=== PATIENT | female | born 1995 | race Caucasian/White ===

== ENCOUNTER 2017-05-19 05:14 | Day surgery (SDC) | payer SELFPAY ==
[2017-05-19 05:42] VITALS: BP 106/65; PULSE 71; RESP 14; TEMP 37.3; O2SAT 100; BMI 18.8
[2017-05-19 05:54] LABS: Internal QC Validated? YES +Cl - CLEAR BKGD; Pregnancy, Urine Negative Negative
--- NOTE | 2017-05-19 07:15 | EMB_PTH ---
PATIENT: DOTTIE NETTLES LOC: [facility] [place] U#:[id number] AGE/SX: 22/F ROOM: RE05/19/[address]: Dr. Jennifer Vidal MD : [id number] BED: DIS: 05/19/2017 SPEC #: [id number] RECD: 05/19/17 08:23 STATUS: RACHAEL GEETHA #: [id number] TERRENCE: 05/19/17 07:[address]: Jennifer Kwan DEPT: SURGICAL PATHOLOGY RECD BY: Krysta Jerome ENTERED: 05/19/17 11:38 SP TYPE: ENDOM BX/C DAYANARA DR: No Primary Care Phys Tissues: A - Endometrium, NOS B - POLYP Procedures: Surgery Specimen Level IV HEADER OPERATION: Hysteroscopy, dilation and curettage, polypectomy PRE-OP DIAGNOSIS: Polyp of cervix uteri TISSUE SUBMITTED: A. Endometrial curettings, B. Endometrial polyp MICROSCOPIC DIAGNOSIS A. Endometrial curettings: Secretory endometrium. B. Endometrial polyp, polypectomy: Fragments of inflamed benign endometrial polyp with secretory endometrium. GEORGINA:deandre 05/20/17 MICROSCOPIC DESCRIPTION Slides are reviewed. GROSS DESCRIPTION A - Received in fixative is one container labeled with the patient's name and designated endometrial curettings. The specimen consists of multiple irregular fragments of pink-red soft tissue that in aggregate measure 3 x 2.5 x 0.3 cm. The entire specimen is submitted in one cassette. B - Received in fixative is one container labeled with the patient's name and designated endometrial polyp. The specimen consists of two pieces of pink, congested polyp measuring 1 x 0.7 x 0.7 cm and 2.5 x 1.5 x 0.7 cm. Both pieces are longitudinally bisected. The entire specimen is submitted in two cassettes with each cassette containing one bisected polyp. / GEORGINA:deandre 05/19/17 TC:5 CPT: 01626 x2
[2017-05-19 08:00] VITALS: BP 104/83; BP 106/65; PULSE 80; RESP 16; TEMP 36.2; O2SAT 100
[2017-05-19 08:05] VITALS: BP 106/65; BP 109/70; PULSE 75; RESP 16; O2SAT 99
--- NOTE | 2017-05-19 08:05 | PCM.DC.D&C ---
Discharge Diet: No Restrictions Discharge Activity: Return to Normal Activity, May Shower May resume sexual activity in: 4 weeks Call your doctor if your incision/area has: Sudden Increased Bleeding, Increased Pain/ Swelling Call your doctor if you observe: Fever of 101 or Higher, Inability to urinate, Inability to have a bowel movement, Using more than one pad per hour, Shortness of breath, Chest pain, Calf discomfort, Uncontrolled pain Instructions: Hysteroscopy Allergies/Adverse Reactions: Allergies No Known Allergies Allergy (Verified 05/12/17 11:53) Medications to take at Discharge Ibuprofen 800 mg PO TID PRN #30 tab 05/19/17 The following prescriptions were given: Ibuprofen 800 mg PO TID PRN #30 tab PRN Reason: Pain Primary Care Physician: Care Physician,No Primary [Primary Care Provider] - Please Follow Up With: Jennifer Alvarez MD When: 2-4 weeks
--- NOTE | 2017-05-19 08:07 | PCM.OPRPT ---
Problem List (1) Abnormal uterine bleeding (AUB) Status: Acute (2) Cervical polyp Status: Acute Report of Operation Date of Procedure: 05/19/17 Pre-Operative Diagnosis: Cervical versus endometrial polyp, abnormal uterine bleeding Post-Operative Diagnosis: : Cervical polyp, abnormal uterine bleeding Surgery/Procedure Performed:: Hysteroscopy, dilation and curettage, cervical polypectomy Description of Surgical Findings:: Prolapsing cervical polyp Uterus with normal shape and bilateral tubal ostia normal Type of Anesthesia:: Local MAC Anesthesiologist: Erick Xavier Specimen's removed: 1. Endometrial curettings 2. Cervical polyp Estimated Blood Loss (mL): 5 Description of Procedure: Indications: Ms. Hugo is a 22-year-old nulligravida presents with excessive and frequent menstruation with irregular cycle reporting postcoital bleeding. She was found to have a polyp prolapsing through the cervix however was unclear if it was cervical or endometrial in origin. Following counseling she opted to proceed with hysteroscopy, D&C, polypectomy. Risks, benefits, indications and alternatives of procedure were reviewed at length. The patient desired to proceed. Procedure: The patient was taken to the operating room and signed and was performed. She is placed in the dorsal supine position and induced under MAC. She is then placed into dorsal lithotomy and examination under anesthesia was performed. The perineum and vagina were prepped and draped in sterile fashion. Straight catheterization of the bladder was performed. A bivalve speculum was placed into the vagina and the cervix visualized and grasped at the anterior cervical lip using a single-tooth tenaculum. A total of 20 cc of 1% lidocaine was placed for paracervical block. A left polyp approximately 3 cm was visualized however it base was unable to be seen. Hysteroscopy was performed him in treating normal uterine cavity and ostia bilaterally. The polyp appear to be of endometrial origin. The Endo Stitch was applied to lasso the polyp with polypectomy performed. The polyp was sent to pathology. Curettage was subsequently performed and followed by hysteroscopy confirming continued integrity of the uterine cavity. The procedure was complete. The tenaculum was removed from the cervix and speculum were removed from the vagina. Sponge counts were correct ?2. The patient was placed into dorsal supine position, awakened, and transferred to the recovery room without complication. - Complications None - Admit VTE Documentation VTE Present on Admission: No VTE Mechan Device Prophylaxis: SCD's VTE Pharm Prophylaxis ordered?: No
[2017-05-19 08:10] VITALS: BP 100/70; BP 106/65; PULSE 72; RESP 16; O2SAT 100
[2017-05-19 08:15] VITALS: BP 106/65; BP 109/70; PULSE 65; RESP 14; TEMP 36.2; O2SAT 100
[2017-05-19 09:59] VITALS: BP 106/65
== END 2017-05-19 10:00 | disposition home or self-care (01) ==
LOC: SDC 05:15 → AC 05:18
PROVIDERS: Visit Provider Obstetrics & Gynecology
PROC: 0UDB8ZZ Extraction of Endometrium, Via Natural or Artificial Opening Endoscopic (ICD-10-PCS; CPT 58558; principal; 2017-05-19 07:05)
DX: N85.8 Other specified noninflammatory disorders of uterus (principal); N84.1 Polyp of cervix uteri; N93.9 Abnormal uterine and vaginal bleeding, unspecified
CPT/HCPCS: 58558; 36415; 81025; 86850; 86900; 88305; J7120

== ENCOUNTER → 2017-09-20 14:45 | Outpatient (CLI) | payer OTHER, SELFPAY ==
[2017-09-21 13:01] LABS: Chlamydia Trachomatis by PCR Negative (Negative); Neisserai gonorrhoeae by PCR Negative (Negative); Probe Check PASS; Sample Adequacy Control PASS; Specimen Processing Control PASS
== END ==
PROVIDERS: Visit Provider Obstetrics & Gynecology
DX: Z12.4 Encounter for screening for malignant neoplasm of cervix (principal); Z11.3 Encounter for screening for infections with a predominantly sexual mode of transmission
CPT/HCPCS: 87491; 87591; 88175; G0145

== ENCOUNTER → 2018-03-28 10:00 | Outpatient (CLI) | payer SELFPAY ==
--- OUTSIDE RECORDS SUMMARY | 2018-06-30 10:30 | XMS RPT_ITS ---
:1995 Author Organization [place] Care Team Providers Name Role Phone JOSEPH REYES Referring Unavailable FUAD CAMARILLO DO Admitting Unavailable FUAD CAMARILLO DO Attending Unavailable FUAD CAMARILLO DO Primary Care Unavailable JOSEPH REYES Consulting Unavailable PROVIDER, UNKNOWN Consulting Unavailable PROVIDER, UNKNOWN Consulting Unavailable PROVIDER, UNKNOWN Consulting Unavailable DARCIE DURÁN Admitting Unavailable DARCIE DURÁN Attending Unavailable DARCIE DURÁN Primary Care Unavailable JOSEPH REYES Consulting Unavailable PROVIDER, UNKNOWN Consulting Unavailable PROVIDER, UNKNOWN Consulting Unavailable PROVIDER, UNKNOWN Consulting Unavailable DARCIE DURÁN Admitting Unavailable DARCIE DURÁN Attending Unavailable DARCIE DURÁN Primary Care Unavailable JOSEPH REYES Consulting Unavailable PROVIDER, UNKNOWN Consulting Unavailable PROVIDER, UNKNOWN Consulting Unavailable PROVIDER, UNKNOWN Consulting Unavailable Darcie Durán Attending Unavailable Primay Care Physicia, No Primary Care Unavailable Jennifer Alvarez Attending Unavailable Jennifer Alvarez Referring Unavailable Primay Care Physicia, No Primary Care Unavailable Darcie Durán Attending Unavailable Darcie Durán Referring Unavailable Darcie Durán Admitting Unavailable Darcie Durán Attending Unavailable Primay Care Physicia, No Primary Care Unavailable Darcie Durán Referring Unavailable PROBLEMS PROBLEMS DATE TYPE CONDITION / CODE ATTENDING STATUS SOURCE 03/29/2018 Unknown Z36.85 - Encounter Darcie Durán Active [facility] for [facility] screening for [facility] Streptococcus B / Repository Z36.85(ICD-10) 11/01/2017 Unknown Z12.4 - Encounter Darcie Durán Active [facility] for screening for Community malignant neoplasm Hospital of cervix / Repository Z12.4(ICD-10) PROCEDURES PROCEDURES No Procedure Records FoundRESULTS RESULTS DISCHARGE INSTRUCTION Observed: 05/03/2018 Status: F Source: ELLEN 11:43 AM [facility] REPOSITORY [facility] Medical Records Department [address] [place] [address] Instructions for Home/Discharge Instructions 05/03/18 1142 MR#: [id number] Acct: [id number] Name: DOTTIE NETTLES Rep #: [id number] : 1995 23 From: Darcie Durán MD PCP: Care Physician, No Primary Status: ADM IN Discharge Diet: No Restrictions Discharge Activity: May Shower, May Take a Tub Bath May resume sexual activity in: 4-6 weeks Additional Activity Instructions:: Nothing in the vagina for 4-6 weeks. You may return to work/school in 6 weeks. Call your doctor if you observe: Fever of 101 or Higher, Inability to urinate, Inability to have a bowel movement, Using more than one pad per hour Additional Instructions: If you experience any of the following, contact your healthcare provider. * Bleeding that soaks a pad every hour for 2 hours * Fever 100.4 or higher * Unrelieved incision or abdominal pain * Swelling, redness, discharge or bleeding from your incision or episiotomy site * Your incision begins to separate * Problems urinating (including inability to urinate or burning while urinating). * Visual changes * Severe headache * Flu-like symptoms * Pain or redness in one of both of your breasts * Pain, warmth, tenderness or swelling in your legs, especially the calf area * Frequent nausea and vomiting * Symptoms of depression or anxiety If you experience any of the following, call 911 or go to the nearest Emergency Room. * Chest pain * Problems breathing * Seizure activity * Partial or complete paralysis of a body part, slurred speech, weakness or drooping of the face, or a sudden inability to walk or hold your balance Allergies/Adverse Reactions: Allergies No Known Allergies Allergy (Verified 05/03/18 03:33) Medications to take at Discharge Tablet 1 tab PO DAILY 05/03/18 Please Follow Up With: Darcie Durán MD - [phone] When: Call to make an appointment with your doctor in 6 weeks. Primary Care Physician: Care Physician,No Primary [Primary Care Provider] - Test Results: Test results from this visit will be discussed in further detail at your follow-up appointment, if applicable. 05/03/18 1143 <Electronically signed by Darcie Durán MD> Date Darcie Durán MD CC: No Primary Care Physician Signed OPERATIVE REPORT Observed: 05/03/2018 Status: F Source: ALLRED 11:42 AM [facility] Medical Records Department [address] [place] [address] Operative Report 05/03/18 1139 MR#: [id number] Acct: [id number] Name: DOTTIE NETTLES Rep #: [id number] : 1995 23 From: Darcie Durán MD PCP: Care Physician, No Primary Status: ADM IN Location: [place] [address] Vaginal Delivery Maternal Presentation: Active Labor Amniotic Membrane Rupture Type: Artificial Amniotic Fluid Description: Clear Final BLANCA: 04/27/18 Final LBANCA Source: US <20 weeks Gestational age: 40 Weeks and 6 Days Date of Procedure: 05/03/18 Pre-Operative Diagnosis: IUP Post-Operative Diagnosis: IUP Surgery/ Procedure Performed: Spontaneous Vaginal Delivery Type of Anesthesia: Local with 1% lidocaine Description of Procedure: Spontaneous vaginal delivery of a viable female infant with Apgars of 9/9 from an occiput anterior presentation with clear amniotic fluid and normal three-vessel placenta. Second-degree midline episiotomy extended to third degree midline laceration repaired in layers with 3-0 Vicryl suture under local. Sponges okay. Delivery physician: Darcie Durán MD. Presentation: Vertex Placental Delivery Description: Spontaneous Placenta Disposition: [facility] Cord Vessel Description: 3 Vessels Cord Entanglement: None Drain: Doran to straight drain Estimated Blood Loss: 250 cc A gender: Female (1 minute): 9 (5 minute): 9 Episiotomy Description: Midline, 2nd degree Laceration: Midline, 3rd degree Medications given after delivery: IV Pitocin Complications: None 05/03/18 1142 <Electronically signed by Darcie Durán MD> Date Darcie Durán MD CC: No Primary Care Physician; Darcie Durán MD Signed CBC-COMPLETE BLOOD CNT Collected: 05/03/2018 Status: F Source: ELLEN NO DIFF 3:15 AM [facility] REPOSITORY TYPE CODE TESTS RESULT OUT OF RANGE REFERENCE UNITS LAB L100.1000 4.4-11.0 K/mm3 Normal WBC 10.7 LAB L100.1200 4.2-5.4 M/mm3 Normal RBC 4.43 LAB L100.1300 12.0-15.0 g/dl Normal HGB 13.7 LAB L100.1400 37-47 % Normal HCT 40.2 LAB L100.1500 81-99 fL Normal MCV 90.7 LAB L100.1600 27.0-32.0 pg Normal MCH 30.9 LAB L100.1700 32-36 g/gl Normal MCHC 34.1 LAB L100.1810 11.6-14.6 % Normal RDW CV 13.0 LAB L100.1820 35.1-43.9 fl Normal RDW SD 42.4 LAB L100.1900 150-450 K/mm3 Normal PLT 150 LAB L100.2000 6.2-12.0 fl Normal MPV 10.1 Performed By: #### L100.0500 #### [facility] [address] [place], [place], [address] TYPE AND SCREEN Collected: 05/03/2018 Status: F Source: ELLEN 3:15 AM [facility] REPOSITORY Order Comment: Reason for Type AND Screen/Red Cells: TYPE CODE TESTS RESULT OUT OF RANGE REFERENCE UNITS LAB B10.0800 O Normal BLOOD TYPE GEL POSITIVE LAB B100.4000 Normal Antibody NEGATIVE Screen Performed By: #### B101.7450 #### [facility] [address] [place], [address] Observed: 03/29/2018 Status: F Source: ELLEN CULTURE, GROUP B 10:00 AM [facility] REPOSITORY Comments: VAGINAL/RECTAL WYATT Culture Group B Beta Streptococcus is not isolated. Performed By: #### M100.1800 #### [facility] [address] [place], [address] CBC Collected: 02/07/2018 Status: F Source: [place] MAG[place] 9:45 AM [facility] REPOSITORY TYPE CODE TESTS RESULT OUT OF RANGE REFERENCE UNITS LAB CBC(LOINC) CBC Result Comment: CBC-COMPLETE BLOOD COUNT LAB WBC(LOINC) 4.5 - 10.8 x 10EE3/UL WBC 9.2 LAB RBC(LOINC) 4.10 - x 10EE6/UL 5.30 RBC 4.12 LAB HEMOGLOBIN(LOINC) 12.0 - g/dl 16.0 HEMOGLOBIN 13.3 LAB HEMATOCRIT(LOINC) 34.0 - % 46.0 HEMATOCRIT 37.6 LAB MCV(LOINC) 80 - 99 fl MCV 91 LAB MCH(LOINC) 27 - 33 pg MCH 32 LAB MCHC(LOINC) 32 - 36 X10 3 MCHC 36 LAB RDW/CV(LOINC) 12.0 - % 15.6 RDW/CV 12.5 LAB PLATELET(LOINC) 150 - 450 x10EE3/UL PLATELET 182 LAB MPV(LOINC) 6.6 - 10.5 fl MPV 8.0 Result Comment: AUTOMATED DIFFERENTIAL LAB NEUT %(LOINC) 46.0 - 76.0 % NEUT % High 80.9 LAB LYMPH %(LOINC) 20.0 - 45.0 % Low LYMPH % 13.1 LAB MONOS %(LOINC) 0.0 - 10.0 % MONOS % 5.0 LAB EO %(LOINC) 0.0 - 7.0 % EO % 0.4 LAB BASO %(LOINC) 0.0 - 2.0 % BASO % 0.6 LAB Lymph #(LOINC) 0.80 - 2.80 x10EE3/U L Lymph # 1.20 LAB Neut #(LOINC) 1.50 - 7.10 x10EE3/U L Neut # High 7.50 LAB Stafford #(LOINC) 0.20 - 1.00 x10EE3/U L Stafford # 0.50 LAB EO #(LOINC) 0.00 - 0.50 x10EE3/U L EO # 0.00 LAB Baso #(LOINC) 0.00 - 0.10 x10EE3/U L Baso # 0.10 LAB MANUAL DIFF(LOINC) MANUAL DIFF N/A LAB MORPHOLOGY([facility] ) MORPHOLOGY N/A Result Comment: {CD] Performed By: #### [id number] #### [facility],[address] [place] [address] GLUCOSE CHALLENGE 50GM Collected: 02/07/2018 Status: F Source: [facility] 1 HOUR 9:45 AM [facility] REPOSITORY TYPE CODE TESTS RESULT OUT OF REFERENCE UNITS RANGE LAB GLUCOSE CHALLENGE 50GM 1 HOUR(INC) GLUCOSE CHALLENGE 50GM 1 HOUR Result Comment: GLUCOSE CHALLENGE 50 GMS 1 HOUR LAB GLUCOSE 1HR([facility]) 70 - 140 mg/dl GLUCOSE 1HR 98 Performed By: #### [id number] #### [facility],[address] [place] [address] URINALYSIS Collected: 10/18/2017 Status: F Source: [facility] 9:15 AM [facility] REPOSITORY TYPE CODE TESTS RESULT OUT OF REFERENCE UNITS RANGE LAB URINALYSIS (INC) URINALYSIS Result Comment: URINALYSIS LAB Specimen Type(LOINC) Specimen Clean Type catch LAB Color(LOINC) NORMAL: YELLOW Color yellow LAB Clarity(LOINC) NORMAL: CLEAR Clarity clear LAB ph(LOINC) NORMAL: 5.0-8.0 ph 8 LAB Protein(LOINC) NORMAL: NEGATIVE Protein NEG LAB Glucose(LOINC) NORMAL: NORMAL Glucose NORM LAB Ketone(LOINC) NORMAL: NEGATIVE Ketone NEG LAB Bilirubin(LOINC) NORMAL: NEGATIVE Bilirubin NEG LAB Blood(LOINC) NORMAL: NEGATIVE Blood NEG LAB Urobilinog(LOINC) NORMAL: NORMAL Urobilinog NORM LAB Sp [place](LOINC) NORMAL: 1.010-1.030 Sp [place] 1.015 LAB Nitrite(LOINC) NORMAL: NEGATIVE Nitrite NEG LAB Leukocytes(LOINC) NORMAL: NEGATIVE Leukocytes NEG LAB Microscopic(LOINC ) Microscopic NOT INDICATED Performed By: #### [id number] #### [facility],[address] [place] [address] CBC Collected: 10/18/2017 Status: F Source: [place] 9:15 AM [facility] REPOSITORY TYPE CODE TESTS RESULT OUT OF RANGE REFERENCE UNITS LAB CBC(LOINC) CBC Result Comment: CBC-COMPLETE BLOOD COUNT LAB WBC(LOINC) 4.5 - 10.8 x 10EE3/UL WBC 8.1 LAB RBC(LOINC) 4.10 - x 10EE6/UL 5.30 RBC High 5.38 LAB HEMOGLOBIN(LOINC 12.0 - g/dl ) 16.0 High HEMOGLOBIN 16.6 LAB HEMATOCRIT(LOINC 34.0 - % ) 46.0 High HEMATOCRIT 46.9 LAB MCV(LOINC) 80 - 99 fl MCV 87 LAB MCH(LOINC) 27 - 33 pg MCH 31 LAB MCHC(LOINC) 32 - 36 X10 3 MCHC 35 LAB RDW/CV(LOINC) 12.0 - % 15.6 RDW/CV 14.3 LAB PLATELET(LOINC) 150 - 450 x10EE3/UL PLATELET 190 LAB MPV(LOINC) 6.6 - 10.5 fl MPV 8.5 Result Comment: AUTOMATED DIFFERENTIAL LAB NEUT %(LOINC) 46.0 - 76.0 % NEUT % High 78.1 LAB LYMPH %(LOINC) 20.0 - 45.0 % Low LYMPH % 16.7 LAB MONOS %(LOINC) 0.0 - 10.0 % MONOS % 4.6 LAB EO %(LOINC) 0.0 - 7.0 % EO % 0.2 LAB BASO %(LOINC) 0.0 - 2.0 % BASO % 0.4 LAB Lymph #(LOINC) 0.80 - 2.80 x10EE3/U L Lymph # 1.30 LAB Neut #(LOINC) 1.50 - 7.10 x10EE3/U L Neut # 6.30 LAB Stafford #(LOINC) 0.20 - 1.00 x10EE3/U L Stafford # 0.40 LAB EO #(LOINC) 0.00 - 0.50 x10EE3/U L EO # 0.00 LAB Baso #(LOINC) 0.00 - 0.10 x10EE3/U L Baso # 0.00 LAB MANUAL DIFF(LOINC) MANUAL DIFF N/A LAB MORPHOLOGY(LOINC ) MORPHOLOGY N/A Result Comment: {CD] Performed By: #### [id number] #### [facility],[address] [place] [address] BB TYPE & SCREEN Collected: 10/18/2017 Status: F Source: [facility] 9:15 [facility] REPOSITORY TYPE CODE TESTS RESULT OUT OF REFERENCE UNITS RANGE LAB BB TYPE & SCREEN(LOIN C) BB TYPE & SCREEN Result Comment: TYPE, Rh, AND SCREEN LAB ABO(LOINC) ABO O LAB Rh(LOINC) Rh POS LAB ANTIBODY SCR(LOINC) ANTIBODY negative SCR Performed By: #### [id number] #### [place] [address] TSH Collected: 10/18/2017 Status: F Source: [facility] 9:15 [facility] REPOSITORY TYPE CODE TESTS RESULT OUT OF RANGE REFERENCE UNITS LAB TSH(LOINC) 0.34 - 5.60 uIU/ml TSH 0.88 Performed By: #### [id number] #### [facility],[address] [place] [address] RUBELLA Collected: 10/18/2017 Status: F Source: [facility] 9:15 [facility] REPOSITORY TYPE CODE TESTS RESULT OUT OF REFERENCE UNITS RANGE LAB RUBELLA(LILIA NC) RUBELLA Result Comment: _RUBELLA_ RUBELLA ANTIBODY (IGG) Reported: 10/20/2017 13:09 Status=F TEST RESULT FLAG RANGE UNITS RUBELLA ANTIBODY (IGG) <0.90 L >=1.00 Index 10/20/17.1322.rfl.SONDRA.AMRR .5334-8 INDEX INTERPRETATION < 0.90 Not consistent with Immunity 0.90 - 0.99 Equivocal > or = 1.00 Consistent with Immunity The presence of Rubella IgG antibody suggests immunization or past or current infection with Rubella virus. Test Performed by Diamond [facility], [employer] [facility], [address] [place] [address] Hung Vidal M.D., Ph.D., Director of [employer] , [facility] [id number] Performed By: #### [id number] #### [facility],[address] [place] [address] RPR [QUEST] Collected: 10/18/2017 Status: F Source: [place] 9:15 AM [facility] REPOSITORY TYPE CODE TESTS RESULT OUT OF RANGE REFERENCE UNITS LAB RPR [QUEST](LILIA NC) RPR [QUEST] Result Comment: _RPR (MONITOR) with REFLEX_ RPR (MONITOR) WITH REFLEX TO TITER Reported: 10/20/2017 16:32 Status=F TEST RESULT FLAG RANGE UNITS RPR SCREEN Nonreactive Nonreactive 10/20/17.1643.rfl.COMPLETE.AMRR .83350-3 RPR TITER Not indicated. 10/20/17.1643.rfl.COMPLETE.AMRR Test Performed by [facility], [employer] [facility], [address] [place] [address] Hung Vidal M.D., Ph.D., Director of Laboratories , [facility] [id number] Performed By: #### [id number] #### [facility],[address] [place] [address] HEP C VIRUS AB WITH Collected: 10/18/2017 Status: F Source: [facility] REFLEX [QUEST] 9:15 AM [facility] REPOSITORY TYPE CODE TESTS RESULT OUT OF REFERENCE UNITS RANGE LAB HEP C VIRUS AB WITH REFLEX [QUEST](LOINC HEP C ) VIRUS AB WITH REFLEX [QUEST] Result Comment: _HEP C VIRUS AB_ HEPATITIS C AB W/REFL HCV RNA, QN REAL-TIME PCR Reported: 10/21/2017 04:05 Status=F TEST RESULT FLAG RANGE UNITS HEPATITIS C ANTIBODY Nonreactive Nonreactive 10/21/17.7.rfl.COMPLETE.AMRR .34010-3 SIGNAL TO CUTOFF 0.01 <1.00 ratio 10/21/17.0417.rfl.COMPLETE.AMRR .35535-3 ADDITIONAL TESTING Not indicated 10/21/17.rfl.COMPLETE.AMRR Test Performed by [facility], [address] [place], [place] Hung Vidal M.D., Ph.D., Director of Laboratories , CLIA [id number] Performed By: #### [id number] #### [facility],[address] [place] [address] HEP B SURFACE AG Collected: 10/18/2017 Status: F Source: [facility] AM [facility] REPOSITORY TYPE CODE TESTS RESULT OUT OF REFERENCE UNITS RANGE LAB HEP B SURFACE AG(LOINC) HEP B SURFACE AG Result Comment: _HEP B S AG_ HEPATITIS B SURFACE ANTIGEN W/RFLX TO CONFIRM. Reported: 10/21/2017 04:05 Status=F TEST RESULT FLAG RANGE UNITS HEPATITIS B SURFACE AG Nonreactive Nonreactive 10/21/17.416.rfl.COMPLETE.AMRR .5196-1 CONFIRMATION see below 10/21/17.rfl.COMPLETE.AMRR .7905-3 Not required according to the current package insert. Test Performed by [facility], [place], [address] [place], [place] Hung Vidal M.D., Ph.D., Director of Laboratories , CLIA [id number] Performed By: #### [id number] #### [facility],[address] [facility] [address] EMERGENCY REPORT Observed: 09/25/2017 Status: F Source: [facility]:06 PM [facility] EMERGENCY ROOM REPORT NAME ACCOUNT SEX AGE ADMIT DISCHARGE PT MED. RECORD# NUMBER DATE DATE TYPE DOTTIE NETTLES [id number] F 09/15/17 09/16/17 3 E [id number] ROOM: ER DATE OF : 1995 DICTATING PHYSICIAN: Fuad Camarillo CHIEF COMPLAINT: Vomiting. HISTORY OF PRESENT ILLNESS: The patient is seen in Room #5 at 1845 hours on September 15, 2017, in the presence of her . She states that she began to have some vomiting yesterday and into today, not a lot, just now and then. She states every time she tried to eat she would have some vomiting. She has not had a lot of vomiting during this . She states that she has had no vaginal bleeding or discharge. She has no pain anywhere. She states that this is her first child and first . REVIEW OF SYSTEMS: No headache, sore throat, cough, congestion, chest pain, abdominal pain, urinary symptomatology, frequency or urgency. No diarrhea. No rash. No swelling. No chronic medications or illnesses. She is here with her . PHYSICAL EXAMINATION: On examination, she is pleasant and alert. Orthostatics on her were basically normal, with a slight increase in her pulse from the 60s to the 90s. Her head is normocephalic. Tympanic membranes, canals and pinna are normal. Pharynx is symmetric without any stridor, hoarseness, or injection. Neck is easily supple. There is no JVD. No anterior, posterior or axillary and later no inguinal nodes. Her lungs are clear. She is not tachypneic. Her heart rate and rhythm are regular. PMI is at the left breast. She has no murmur. She has no peripheral edema. She has good radial pulses and later inguinal pulses. Her abdomen is soft. There is no discomfort whatsoever. She did not have a pelvic examination. Skin is warm and dry. Her vital signs show a 99 oral temperature, 72 radial pulse, 18 respirations, 118/78 blood pressure, and 99% saturation. DIAGNOSTIC DATA: White count was 7.3. H&H were 15.9 and 45; that is an indication of a little bit of hypovolemia. Potassium is 3.3, which is slightly low, which can be made up with dietary supplement. Chemistries otherwise were very good. Her urine initially had some protein in it, 15, with 150 ketones, a little bit of blood, 500 leukocytes, and 16-25 white cells. On repeat urine after she had gotten about 1600 mL, her urine was much more clean, but there were still a bit of ketones remaining. The decision was made to do an ultrasound just to make sure that there was no abnormality there. Since she had not had one, her quantitative was 98,000+. No heart tones could be detected. Her ultrasound had a 149 heart rate and a 7-week gestational age, but the chorionic sac was actually 5 weeks, 6 days. There was a small Page 1 of 2 DOTTIE NETTLES Emergency Room Report amount of subchorionic hemorrhage present. EMERGENCY DEPARTMENT COURSE AND TREATMENT: She had laboratories drawn, and she was given IV fluids. Her discharge is delayed because we wanted to make sure about her type and Rh in case she was negative, and we would give her RhoGAM, but she came back positive. After initial therapy here in the Emergency Room with saline and Zofran 4 mg p.o., she had no more nausea. She was able to take p.o. well. She continued to have no more nausea. She felt fine. Repeat abdominal examinations were negative. I told her to follow up with Dr. Durán in the office. I told her I could not tell if she was going to have a miscarriage or not based on the subchorionic hemorrhage seen on the ultrasound. We gave her a couple Zofran to go for nausea if she should need these. Return if bleeding or pain. DIAGNOSES: 1. Gravid vomiting and dehydration. 2. Findings on ultrasound of a small subchorionic hemorrhage. Dictated By: Fuad Camarillo DO 09/20/17 05:51 JOB #: [id number] Transcribed By: sravan 09/20/17 16:15 Electronically signed by: E-SIGN FUAD CAMARILLO DO 09/25/17 22:06 Page 2 of 2 DOTTIE NETTLES Emergency Room Report CT/NG [facility] BY PCR Collected: 09/20/2017 Status: F Source: ELL[place] 2:45 PM [facility] REPOSITORY Order Comment: CYTOLOGY INFORMATION: - CLINICAL INFORMATION: - DATE LMP/MENOPAUSE: 07-21-17 LMP - COLLECTION VIAL: Thin Prep Vial - INVESTIGATOR SOURCE: CERVICAL/ENDOCERVICAL - COLLECTION TECHNIQUE: BRUSH/SPATULA TYPE CODE TESTS RESULT OUT OF RANGE REFERENCE UNITS LAB L8200.2100 Negative Normal Chlam Negative Trac PCR LAB L8200.2200 Negative Normal NG by Negative PCR Performed By: #### L8200.2000 #### [facility] [place], [address] PAP TEST I-G Collected: 09/20/2017 Status: F Source: [place]RED 2:45 PM [facility] REPOSITORY Order Comment: CYTOLOGY INFORMATION: - CLINICAL INFORMATION: - DATE LMP/MENOPAUSE: 07-21-17 LMP - COLLECTION VIAL: Thin Prep Vial - INVESTIGATOR SOURCE: CERVICAL/ENDOCERVICAL - COLLECTION TECHNIQUE: BRUSH/SPATULA Specimen Comment: [id number] Specimen Comment: No. of containers..01 ThinPrep Vial TYPE CODE TESTS RESULT OUT OF RANGE REFERENCE UNITS LAB L7400.0800 . Normal DIAGN Comment Result Comment: NEGATIVE FOR INTRAEPITHELIAL LESION AND MALIGNANCY. LAB L7400.0900 . Normal ADEQ Comment Result Comment: Satisfactory for evaluation. Endocervical and/or squamous metaplastic cells (endocervical component) are present. LAB L7400.1400 . Normal PERFORM Comment Result Comment: Kimmy tSanley, Lawn Mower (ASCP) LAB L7400.2575 . Normal TEST METHOD Comment Result Comment: This liquid based ThinPrep(R) pap test was screened with the use of an image guided system. Performed at: [address] [id number] Finance Business Partner: Faye Hawk MD, Phone: [phone] LAB L7400.0844 . Normal . COMM LAB L7400.2700 . Normal PAPSMR Comment Result Comment: The Pap smear is a screening test designed to aid in the detection of premalignant and malignant conditions of the uterine cervix. It is not a diagnostic procedure and should not be used as the sole means of detecting cervical cancer. Both false-positive and false-negative reports do occur. Performed By: #### L7400.0399 #### [facility] (refer to report for specific site) refer to report for address and phone number BB TYPE & SCREEN Collected: 09/15/2017 Status: F Source: [place] 11:06 PM [facility] REPOSITORY TYPE CODE TESTS RESULT OUT OF REFERENCE UNITS RANGE LAB BB TYPE & SCREEN(LOIN C) BB TYPE & SCREEN Result Comment: TYPE, Rh, AND SCREEN LAB ABO(LOINC) ABO O LAB Rh(LOINC) Rh POS LAB ANTIBODY SCR(LOINC) ANTIBODY negative SCR Performed By: #### [id number] #### [place] [address] URINALYSIS Collected: 09/15/2017 Status: F Source: [place] 11:05 PM [facility] REPOSITORY TYPE CODE TESTS RESULT OUT OF REFERENCE UNITS RANGE LAB URINALYSIS (LOINC) URINALYSIS Result Comment: URINALYSIS LAB Specimen Type(LOINC) Specimen Type Void LAB Color(LOINC) NORMAL: YELLOW Color YELLOW LAB Clarity(LOINC) NORMAL: CLEAR Clarity clear LAB ph(LOINC) NORMAL: 5.0-8.0 ph 5 LAB Protein(LOINC) NORMAL: NEGATIVE Protein NEG LAB Glucose(LOINC) NORMAL: NORMAL Glucose NORM LAB Ketone(LOINC) NORMAL: NEGATIVE Ketone Abnormal 150 LAB Bilirubin(LOINC) NORMAL: NEGATIVE Bilirubin NEG LAB Blood(LOINC) NORMAL: NEGATIVE Blood NEG LAB Urobilinog(LOINC NORMAL: ) NORMAL Urobilinog NORM LAB Sp NORMAL: [place](LOINC) 1.010-1.030 Sp [place] 1.010 LAB Nitrite(LOINC) NORMAL: NEGATIVE Nitrite NEG LAB Leukocytes(LOINC NORMAL: ) NEGATIVE Leukocytes NEG LAB Microscopic(LOIN C) Microscopic NOT INDICATED Performed By: #### [id number] #### [facility],[address] [place] [address] US OB INITIAL< 14 Observed: 09/15/2017 Status: F Source: [place] PAREDES; 1ST GESTATION 10:00 PM [place] [address] Patient: THO DOTTIE Daylin Phone#: : 1995 Age: 22 Gender: F Pt. Type: ER Account: [id number] Location: 052 Ordering: DR. FUAD CAMARILLO Exam Date: 09/15/2017/21:32 Family Phys: JOSEPH REYES Charge Code: [id number] Physician: Plumas Order #: [id number] [id number] Dose#: PROCEDURE: OB INITIAL <14 WEEKS ULTRASOUND, TRANSABDOMINAL ENDOVAGINAL COMPARISON: None. INDICATIONS: Rule out ectopic TECHNIQUE: Transabdominal and endovaginal pelvic ultrasound examinations were performed. FINDINGS: GESTATIONAL SAC: Gestation sac is present and corresponds to gestational age of 5 weeks 6 days. Anteriorly there is a focus of mixed echogenicity measuring 18 x 15 x 8 mm consistent with subchorionic hemorrhage. POLE: Present and normal appearing. Corresponds to age of 7 weeks one day. YOLK SAC: Present. CARDIAC ACTIVITY: Present. 149 bpm UTERUS: Normal. ADNEXAE/OVARIES: Normal. CUL-DE-SAC: Normal. CERVICAL LENGTH: N/A. CLINICAL AGE: 6 weeks 4 days. SONOGRAPHIC AGE: 7 weeks zero days. PLACENTA: Unable to visualize due to age. AMNIOTIC FLUID VOLUME: Normal for age. OTHER: Negative. CONCLUSION: 1. SLIUP 7 weeks zero days. 2. Focus of mixed echogenicity anteriorly is consistent with subchorionic hemorrhage. Dictated by: Kasey Gruber MD on 09/16/2017 at 9:37 Approved by: Kasey Gruber MD on 09/16/2017 at 9:37 OB ENDO VAGINAL Observed: 09/15/2017 Status: F Source: [facility] 10:00 PM [place] [address] Patient: DOTTIE NETTLES Phone#: : 1995 Age: 22 Gender: F Pt. Type: ER Account: [id number] Location: 052 Ordering: DR. FUAD CAMARILLO Exam Date: 09/15/2017/21:32 Family Phys: JOSEPH REYES Charge Code: [id number] Physician: Plumas Order #: [id number] [id number] Dose#: PROCEDURE: OB INITIAL <14 WEEKS ULTRASOUND, TRANSABDOMINAL ENDOVAGINAL COMPARISON: None. INDICATIONS: Rule out ectopic TECHNIQUE: Transabdominal and endovaginal pelvic ultrasound examinations were performed. FINDINGS: GESTATIONAL SAC: Gestation sac is present and corresponds to gestational age of 5 weeks 6 days. Anteriorly there is a focus of mixed echogenicity measuring 18 x 15 x 8 mm consistent with subchorionic hemorrhage. POLE: Present and normal appearing. Corresponds to age of 7 weeks one day. YOLK SAC: Present. CARDIAC ACTIVITY: Present. 149 bpm UTERUS: Normal. ADNEXAE/OVARIES: Normal. CUL-DE-SAC: Normal. CERVICAL LENGTH: N/A. CLINICAL AGE: 6 weeks 4 days. SONOGRAPHIC AGE: 7 weeks zero days. PLACENTA: Unable to visualize due to age. AMNIOTIC FLUID VOLUME: Normal for age. OTHER: Negative. CONCLUSION: 1. SLIUP 7 weeks zero days. 2. Focus of mixed echogenicity anteriorly is consistent with subchorionic hemorrhage. Dictated by: Kasey Gruber MD on 09/16/2017 at 9:37 Approved by: Kasey Gruber MD on 09/16/2017 at 9:37 URINALYSIS Collected: 09/15/2017 Status: F Source: [facility] 8:13 PM [facility] REPOSITORY TYPE CODE TESTS RESULT OUT OF REFERENCE UNITS RANGE LAB URINALYSIS (LOINC) URINALYSIS Result Comment: URINALYSIS LAB Specimen Type(LOINC) Specimen Type Void LAB Color(LOINC) NORMAL: YELLOW Color yellow LAB Clarity(LOINC) NORMAL: CLEAR Clarity clear LAB ph(LOINC) NORMAL: 5.0-8.0 ph 5 LAB Protein(LOINC) NORMAL: NEGATIVE Protein Abnormal 15 LAB Glucose(LOINC) NORMAL: NORMAL Glucose NORM LAB Ketone(LOINC) NORMAL: NEGATIVE Ketone Abnormal 150 LAB Bilirubin(LOINC) NORMAL: NEGATIVE Bilirubin NEG LAB Blood(LOINC) NORMAL: NEGATIVE Blood Abnormal 50 LAB Urobilinog(LOINC) NORMAL: NORMAL Urobilinog NORM LAB Sp [place](LOINC) NORMAL: 1.010-1.030 [place] 1.020 LAB Nitrite(LOINC) NORMAL: NEGATIVE Nitrite NEG LAB Leukocytes(LOINC) NORMAL: NEGATIVE Leukocytes Abnormal 500 LAB Microscopic(LOINC ) Microscopic SEE BELOW Result Comment: MICROSCOPIC LAB Wbc(LOINC) 0-5/hpf Wbc 16-25 LAB Rbc(LOINC) 0-3/hpf Rbc 5-10 LAB Casts(LOINC) Casts NONE LAB Crystals(LOINC) Crystals NONE LAB Amorphous(LOINC) 1+ Amorphous LAB Bacteria(LOINC) Bacteria 2+ LAB Epi Cells(LOINC) Epi Cells MODERATE LAB Mucous(LOINC) Mucous 1+ LAB Yeast(LOINC) Yeast NONE Performed By: #### [id number] #### [facility],[address] [place] [address] Observed: 09/15/2017 Status: F Source: [facility] CULTURE URINE 8:13 PM [facility] REPOSITORY CULTURE URINE _URINE CULTURE_ M I C R O B I O L O G Y R E P O R T FINAL Antimicrobial Susceptibility and Organism Identification Report Specimen Number : [id number] Requested : 09/15/17 Specimen Source : URINE Collected : 09/15/17 20:13 Gallardo of Isolation : Emergency Room Received : 09/15/17 20:13 Requesting Physician : STANISLAV Vanessa Patient/Specimen Tests and Comments Specimen Comments NO GROWTH AT 18 - 24 HOURS FINAL REPORT: NO GROWTH AT 48 HOURS Tech : Source : URINE ID # : [id number] FINAL Report Date : / / : Collected : 09/15/17 20:13 09/17/17.MDS. 09/17/17.MDS.COMPLETE Performed By: #### [id number] #### [facility],[address] [place] [address] CBC Collected: 09/15/2017 Status: F Source: [facility] 6:53 PM [facility] REPOSITORY TYPE CODE TESTS RESULT OUT OF RANGE REFERENCE UNITS LAB CBC(LOINC) CBC Result Comment: CBC-COMPLETE BLOOD COUNT LAB WBC(LOINC) 4.5 - 10.8 x 10EE3/UL WBC 7.3 LAB RBC(LOINC) 4.10 - x 10EE6/UL 5.30 RBC 5.22 LAB HEMOGLOBIN(LOINC) 12.0 - g/dl 16.0 HEMOGLOBIN 15.9 LAB HEMATOCRIT(LOINC) 34.0 - % 46.0 HEMATOCRIT 45.2 LAB MCV(LOINC) 80 - 99 fl MCV 87 LAB MCH(LOINC) 27 - 33 pg MCH 31 LAB MCHC(LOINC) 32 - 36 X10 3 MCHC 35 LAB RDW/CV(LOINC) 12.0 - % 15.6 RDW/CV 13.9 LAB PLATELET(LOINC) 150 - 450 x10EE3/UL PLATELET 211 LAB MPV(LOINC) 6.6 - 10.5 fl MPV 8.4 Result Comment: AUTOMATED DIFFERENTIAL LAB NEUT %(LOINC) 46.0 - 76.0 % NEUT % 71.1 LAB LYMPH %(LOINC) 20.0 - 45.0 % LYMPH % 20.0 LAB MONOS %(LOINC) 0.0 - 10.0 % MONOS % 8.3 LAB EO %(LOINC) 0.0 - 7.0 % EO % 0.3 LAB BASO %(LOINC) 0.0 - 2.0 % BASO % 0.3 LAB Lymph #(LOINC) 0.80 - 2.80 x10EE3/U L Lymph # 1.50 LAB Neut #(LOINC) 1.50 - 7.10 x10EE3/U L Neut # 5.20 LAB [place] #(LOINC) 0.20 - 1.00 x10EE3/U L [place] # 0.60 LAB EO #(LOINC) 0.00 - 0.50 x10EE3/U L EO # 0.00 LAB Baso #(LOINC) 0.00 - 0.10 x10EE3/U L Baso # 0.00 LAB MANUAL DIFF(LOINC) MANUAL DIFF N/A LAB MORPHOLOGY(INC ) MORPHOLOGY N/A Result Comment: {CD] Performed By: #### [id number] #### [facility],[address] [place] [address] CMP WITH EGFR Collected: 09/15/2017 Status: F Source: [facility] 6:53 PM [facility] REPOSITORY TYPE CODE TESTS RESULT OUT OF RANGE REFERENCE UNITS LAB CMP with eGFR(INC) CMP with eGFR Result Comment: COMPREHENSIVE METABOLIC PANEL LAB SODIUM(LOINC) 136 - 145 mmol/l SODIUM Low 133 LAB POTASSIUM(LOINC) 3.5 - 5.1 mmol/L Low POTASSIUM 3.3 LAB CHLORIDE(LOINC) 98 - 107 mmol/L CHLORIDE 105 LAB CO2(LOINC) 21.0 - mmol/L 31.0 CO2 22.8 LAB GLUCOSE(LOINC) 74 - 106 mg/dl GLUCOSE 83 LAB BUN(LOINC) 6 - 20 mg/dl BUN 9 LAB CREATININE(LOINC) 0.6 - 1.2 mg/dl CREATININE 0.6 LAB AST/SGOT(LOINC) 13 - 39 U/L AST/SGOT Low 12 LAB ALK PHOS(LOINC) 38 - 126 U/L ALK PHOS Low 29 LAB CALCIUM(LOINC) 8.6 - mg/dl 10.2 CALCIUM 9.5 LAB TOTAL 6.4 - 8.3 g/dl PROTEIN(LOINC) TOTAL PROTEIN 6.9 LAB ALBUMIN(LOINC) 3.4 - 4.8 g/dL ALBUMIN 4.7 LAB GLOBULIN(LOINC) 1.5 - 3.8 G/DL GLOBULIN 2.2 LAB A/G RATIO(LOINC) 0.9 - 1.6 A/G High RATIO 2.1 LAB TOTAL BILI(LOINC) 0.0 - 1.5 mg/dl TOTAL BILI 0.8 LAB B/C RATIO(LOINC) 0 - 30 ratio B/C RATIO 15 LAB ALT/SGPT(LOINC) 8 - 35 U/L ALT/SGPT 9 LAB ANION GAP(LOINC) 10 - 20 mmol/L ANION Low GAP 9 LAB AGE(LOINC) years AGE 22 LAB eGFR(LOINC) 60 - 999 ML/MINUTE eGFR >60 LAB eGFR(AA)(LOINC) 60 - 999 ML/MINUTE eGFR(AA) >60 Result Comment: ACCORDING TO THE NATIONAL KIDNEY DISEASE EDUCATION PROGRAM(NKDE), A NORMAL eGFR IS A VALUE GREATER THAN OR EQUAL TO 60 ML/MIN/1.73 SQ METERS. CHRONIC KIDNEY DISEASE: <60mL/MIN/1.73 SQ METERS KIDNEY FAILURE: <15mL/MIN/1.73 SQ METERS THIS TEST SHOULD ONLY BE USED FOR PATIENTS 18 YEARS OF AGE AND OLDER. Performed By: #### [id number] #### [facility],[address] [place] [address] PREG SERUM QUANT Collected: 09/15/2017 Status: F Source: [facility] 6:53 PM [facility] REPOSITORY TYPE CODE TESTS RESULT OUT OF REFERENCE UNITS RANGE LAB HCG mIU/mL QUANTITATI VE(LOINC) HCG QUANTITATIVE 50582 Result Comment: Reference Range: Male: <5 Female: Non: <5 1 - 7 days : 5 - 50 1 - 2 weeks: 50 - 500 2 - 3 weeks: 100 - 5000 3 - 4 weeks: 500 - 10,000 4 - 5 weeks: 1000 - 50,000 5 - 6 weeks: 10,000 - 100,000 6 - 8 weeks: 15,000 - 200,000 2 - 3 months: 10,000 - 100,000 2ND TRIMESTER 3000-50,000 3RD TRIMESTER 1000-50,000 Performed By: #### [id number] #### [facility],[address] [facility] [address] OPERATIVE REPORT Observed: 05/19/2017 Status: F Source: [facility] 8:13 AM [facility] REPOSITORY [facility] Medical Records Department [address] [place] [address] Operative Report 05/19/17 0807 MR#: [id number] Acct: [id number] Name: DOTTIE NETTLES Rep #: [id number] : 1995 22 From: Jennifer Vidal MD PCP: Care Physician, No Primary Status: REG [facility] Y Location: [place] [address] Problem List (1) Abnormal uterine bleeding (AUB) Status: Acute (2) Cervical polyp Status: Acute Report of Operation Date of Procedure: 05/19/17 Pre-Operative Diagnosis: Cervical versus endometrial polyp, abnormal uterine bleeding Post-Operative Diagnosis: : Cervical polyp, abnormal uterine bleeding Surgery/Procedure Performed:: Hysteroscopy, dilation and curettage, cervical polypectomy Description of Surgical Findings:: Prolapsing cervical polyp Uterus with normal shape and bilateral tubal ostia normal Type of Anesthesia:: Local MAC Anesthesiologist: Erick Xavier Specimen's removed: 1. Endometrial curettings 2. Cervical polyp Estimated Blood Loss (mL): 5 Description of Procedure: Indications: Ms. Nettles is a 22-year-old nulligravida presents with excessive and frequent menstruation with irregular cycle reporting postcoital bleeding. She was found to have a polyp prolapsing through the cervix however was unclear if it was cervical or endometrial in origin. Following counseling she opted to proceed with hysteroscopy, D AND C, polypectomy. Risks, benefits, indications and alternatives of procedure were reviewed at length. The patient desired to proceed. Procedure: The patient was taken to the operating room and signed and was performed. She is placed in the dorsal supine position and induced under MAC. She is then placed into dorsal lithotomy and examination under anesthesia was performed. The perineum and vagina were prepped and draped in sterile fashion. Straight catheterization of the bladder was performed. A bivalve speculum was placed into the vagina and the cervix visualized and grasped at the anterior cervical lip using a single-tooth tenaculum. A total of 20 cc of 1% lidocaine was placed for paracervical block. A left polyp approximately 3 cm was visualized however it base was unable to be seen. Hysteroscopy was performed him in treating normal uterine cavity and ostia bilaterally. The polyp appear to be of endometrial origin. The Endo Stitch was applied to lasso the polyp with polypectomy performed. The polyp was sent to pathology. Curettage was subsequently performed and followed by hysteroscopy confirming continued integrity of the uterine cavity. The procedure was complete. The tenaculum was removed from the cervix and speculum were removed from the vagina. Sponge counts were correct 2. The patient was placed into dorsal supine position, awakened, and transferred to the recovery room without complication. - Complications None - Admit VTE Documentation VTE Present on Admission: No VTE Mechan Device Prophylaxis: SCD's VTE Pharm Prophylaxis ordered?: No 05/19/1713 <Electronically signed by Jennifer Alvarez MD> Date Jennifer Alvarez MD CC: No Primary Care Physician; Jennifer Alvarez MD Signed DISCHARGE INSTRUCTION Observed: 05/19/2017 Status: F Source: [place] 8:07 AM [facility] REPOSITORY [facility] Medical Records Department [address] [place] [address] Instructions for Home/Discharge Instructions 05/19/17 08 MR#: [id number] Acct: [id number] Name: DOTTIE NETTLES Rep #: [id number] : 1995 22 From: Jennifer Vidal MD PCP: Care Physician, No Primary Status: REG [facility] Discharge Diet: No Restrictions Discharge Activity: Return to Normal Activity, May Shower May resume sexual activity in: 4 weeks Call your doctor if your incision/area has: Sudden Increased Bleeding, Increased Pain/ Swelling Call your doctor if you observe: Fever of 101 or Higher, Inability to urinate, Inability to have a bowel movement, Using more than one pad per hour, Shortness of breath, Chest pain, Calf discomfort, Uncontrolled pain Instructions: Hysteroscopy Allergies/Adverse Reactions: Allergies No Known Allergies Allergy (Verified 05/12/17 11:53) Medications to take at Discharge Ibuprofen 800 mg PO TID PRN #30 tab 05/19/17 The following prescriptions were given: Ibuprofen 800 mg PO TID PRN #30 tab PRN Reason: Pain Primary Care Physician: Care Physician,No Primary [Primary Care Provider] - Please Follow Up With: Jennifer Alvarez MD When: 2-4 weeks 05/19/17806 <Electronically signed by Jennifer Alvarez MD> Date Jennifer Alvarez MD CC: No Primary Care Physician ENDOMETRIAL BX/CURETTINGS Observed: 05/19/2017 Status: F Source: ELLEN 7:15 AM [facility] REPOSITORY Patient: DOTTIE NETTLES : 1995 (/) Acct Num: [id number] Phys: Jennifer Alvarez MD Unit Num: [id number] Loc: [facility] Specimen: [id number] Received: 05/19/17822 Spec Type: ENDOM BX/C TISSUES TISSUES: A. Endometrium, NOS B. POLYP GROSS DESCRIPTION A - Received in fixative is one container labeled with the patient's name and designated endometrial curettings. The specimen consists of multiple irregular fragments of pink-red soft tissue that in aggregate measure 3 x 2.5 x 0.3 cm. The entire specimen is submitted in one cassette. B - Received in fixative is one container labeled with the patient's name and designated endometrial polyp. The specimen consists of two pieces of pink, congested polyp measuring 1 x 0.7 x 0.7 cm and 2.5 x 1.5 x 0.7 cm. Both pieces are longitudinally bisected. The entire specimen is submitted in two cassettes with each cassette containing one bisected polyp. / Sinan 05/19/17 TC:5 CPT: 53433 x2 HEADER OPERATION: Hysteroscopy, dilation and curettage, polypectomy PRE-OP DIAGNOSIS: Polyp of cervix uteri TISSUE SUBMITTED: A. Endometrial curettings, B. Endometrial polyp MICROSCOPIC DESCRIPTION Slides are reviewed. MICROSCOPIC DIAGNOSIS A. Endometrial curettings: Secretory endometrium. B. Endometrial polyp, polypectomy: Fragments of inflamed benign endometrial polyp with secretory endometrium. SJ:deandre 05/20/17 Signed Kp Mcarthur 05/20/17 <signature on file> Performed By: #### PEMB #### [facility] [address] [place], [address] TYPE AND SCREEN Collected: 05/19/2017 Status: F Source: [facility] 5:50 AM [facility] REPOSITORY Order Comment: Reason for Type AND Screen/Red Cells: SURGERY TYPE CODE TESTS RESULT OUT OF RANGE REFERENCE UNITS LAB B10.0800 O Normal BLOOD TYPE GEL POSITIVE LAB B100.4000 Normal Antibody NEGATIVE Screen Performed By: #### [id number] #### [facility] [address] [place], [address] ,URINE Collected: 05/19/2017 Status: F Source: [place] 5:40 AM [facility] REPOSITORY TYPE CODE TESTS RESULT OUT OF REFERENCE UNITS RANGE LAB L400.8000 Negative Normal HCGUQUAL Negative Result Comment: Very dilute urine specimens, as indicated by a low specific gravity, may not contain labor service representative levels of hCG. If is still suspected, a first morning urine specimen should be collected 48 hours later and tested. Performed By: #### L400.7600 #### [facility] [address] [place], [address] ALLERGIES ALLERGIES DATE TYPE / CODE NAME / CODE REACTION SEVERITY SOURCE 05/03/2018 Drug No Known Unknown [place] Allergy/484851225(S Allergies/F[address] [facility] [place]) [address](RXNORM) Hospital Repository Miscellaneous No Known Drug Moderate [place] P[place] Allergy/864588783(S Allergies (Severity [facility] NOMED CT) Modifier) [facility] (Qualifier Repository Value) ENCOUNTERS ENCOUNTERS ADMIT/DISCHARGE ACCOUNT ADMITTING ENCOUNTER LOCATION SOURCE NUMBER CLASS 05/03/2018/ [id number] Darcie Durán Inpatient [facility] 9 1 Encounter [facility] ing:WPRoom: Repository [id number]: 1 03/28/2018 [id number] Ambulatory Ellen [place] 7 [facility] ing:LABSPEC Repository 02/07/2018/ [id number] DARCIE DURÁN [facility] 8 [facility] Repository 10/18/2017/ [id number] DARCIE DURÁN [facility] 8 [facility] Repository 09/20/2017 [id number] Ambulatory Ellen [place] 6 [facility] ing:LABSPEC Repository 09/15/2017/ [id number] [facility], Emergency [address] [place] [address] 8 FUAD DO oom: ERBed: [facility] Repository 05/19/2017/ [id number] [facility] 9 [facility] ing:SDCRoom: Repository AC08 PAYERS PAYERS ENCOUNTER GUARANTOR PAYER SUBSCRIBER SOURCE 05/03/2018 DOTTIE [place] Primary Insurance:[facility] DOTTIE [id number] CR PACKAGE PLANPolicy MILLERDOB: [facility] [address], Number: .Effective [id number] [address]Wwx: . Date:2017-10-07 Repository (HP) 05/03/2018 Secondary NOT GIVENUNK [place] Insurance:SELF PAY [facility] Number: Effective Repository Date:2017-10-07 03/28/2018 DOTTIE [place] Primary NOT GIVENUNK Ellen [id number] CR Insurance:SELF PAY [address] [address]Lev: NO Number: Effective Repository PHONE (HP) Date:2018-03-28 09/20/2017 DOTTIE Mills Primary DOTTIE Mills Ellen [id number] CR Insurance:JAIN MILLERDOB: [address] Number: [id number] [address]Uzc: NO Effective Repository PHONE (HP) Date:2017-09-20 09/20/2017 Secondary NOT GIVENUNK [place] Insurance:SELF PAY [facility] Number: Effective Repository Date:2017-09-20 05/19/2017 DOTTIE [place] Primary Insurance:[facility] DOTTIE Hughes [id number] CR [facility] MILLERDOB: [address], Number: .Effective [id number] Vista Regional Hospital [address]Osj: Date:2017-04-25 Repository () 05/19/2017 Secondary NOT GIVENUNK Ellen Insurance:SELF PAY [facility] Number: Effective Repository Date:2017-04-25
== END ==
PROVIDERS: Visit Provider Obstetrics & Gynecology
DX: Z36.85 Encounter for antenatal screening for Streptococcus B (principal)
CPT/HCPCS: 87081

== ENCOUNTER 2018-05-03 02:33 | Inpatient (IN) | payer SELFPAY ==
[2018-05-03] MEDS: Lactated Ringers 1,000 ML 50 ML IV (03:15)
[2018-05-03 03:31] VITALS: BMI 23.6
[2018-05-03 03:36] LABS: Hematocrit 40.2 % (37-47); Hemoglobin 13.7 g/dl (12.0-15.0); Mean Corp Hgb Conc 34.1 g/gl (32-36); Mean Corpuscular Hgb 30.9 pg (27.0-32.0); Mean Corpuscular Volume 90.7 fL (81-99); Mean Platelet Vol. 10.1 fl (6.2-12.0); Platelet Count 150 K/mm3 (150-450); RBC Distribution Width SD 42.4 fl (35.1-43.9); Red Blood Count 4.43 M/mm3 (4.2-5.4); White Blood Count 10.7 K/mm3 (4.4-11.0)
[2018-05-03 03:39] LABS: Scan Indicated on CBC? Y/N NO
[2018-05-03] MEDS: Oxytocin 30 units/NS 500 ml 30 UNITS/500 ML IV.SOLN 334 UNITS IV (11:30)
--- NOTE | 2018-05-03 11:39 | PCM.OB.VAG ---
Vaginal Delivery Maternal Presentation: Active Labor Amniotic Membrane Rupture Type: Artificial Amniotic Fluid Description: Clear Final BLANCA: 04/27/18 Final BLANCA Source: US <20 weeks Gestational age: 40 Weeks and 6 Days Date of Procedure: 05/03/18 Pre-Operative Diagnosis: IUP Post-Operative Diagnosis: IUP Surgery/ Procedure Performed: Spontaneous Vaginal Delivery Type of Anesthesia: Local with 1% lidocaine Description of Procedure: Spontaneous vaginal delivery of a viable female infant with Apgars of 9/9 from an occiput anterior presentation with clear amniotic fluid and normal three-vessel placenta. Second-degree midline episiotomy extended to third degree midline laceration repaired in layers with 3-0 Vicryl suture under local. Sponges okay. Delivery physician: Hima Davis MD. Presentation: Vertex Placental Delivery Description: Spontaneous Placenta Disposition: [facility] Cord Vessel Description: 3 Vessels Cord Entanglement: None Drain: Doran to straight drain Estimated Blood Loss: 250 cc Infant A gender: Female (1 minute): 9 (5 minute): 9 Episiotomy Description: Midline, 2nd degree Laceration: Midline, 3rd degree Medications given after delivery: IV Pitocin Complications: None
--- NOTE | 2018-05-03 11:42 | OP.PCM_ITS ---
Vaginal Delivery Maternal Presentation: Active Labor Amniotic Membrane Rupture Type: Artificial Amniotic Fluid Description: Clear Final BLANCA: 04/27/18 Final BLANCA Source: US <20 weeks Gestational age: 40 Weeks and 6 Days Date of Procedure: 05/03/18 Pre-Operative Diagnosis: IUP Post-Operative Diagnosis: IUP Surgery/ Procedure Performed: Spontaneous Vaginal Delivery Type of Anesthesia: Local with 1% lidocaine Description of Procedure: Spontaneous vaginal delivery of a viable female with Apgars of 9/9 from an occiput anterior presentation with clear amniotic fluid and normal three- vessel placenta. Second-degree midline episiotomy extended to third degree midline laceration repaired in layers with 3-0 Vicryl suture under local. Sponges okay. Delivery physician: Hima Davis MD. Presentation: Vertex Placental Delivery Description: Spontaneous Placenta Disposition: [facility] Cord Vessel Description: 3 Vessels Cord Entanglement: None Drain: Doran to straight drain Estimated Blood Loss: 250 cc A gender: Female (1 minute): 9 (5 minute): 9 Episiotomy Description: Midline, 2nd degree Laceration: Midline, 3rd degree Medications given after delivery: IV Pitocin Complications: None
--- NOTE | 2018-05-03 11:42 | PCM.DCVAG ---
Discharge Diet: No Restrictions Discharge Activity: May Shower, May Take a Tub Bath May resume sexual activity in: 4-6 weeks Additional Activity Instructions:: Nothing in the vagina for 4-6 weeks. You may return to work/school in 6 weeks. Call your doctor if you observe: Fever of 101 or Higher, Inability to urinate, Inability to have a bowel movement, Using more than one pad per hour Additional Instructions: If you experience any of the following, contact your healthcare provider. Bleeding that soaks a pad every hour for 2 hours Fever 100.4 or higher Unrelieved incision or abdominal pain Swelling, redness, discharge or bleeding from your incision or episiotomy site Your incision begins to separate Problems urinating (including inability to urinate or burning while urinating). Visual changes Severe headache Flu-like symptoms Pain or redness in one of both of your breasts Pain, warmth, tenderness or swelling in your legs, especially the calf area Frequent nausea and vomiting Symptoms of depression or anxiety If you experience any of the following, call 911 or go to the nearest Emergency Room. Chest pain Problems breathing Seizure activity Partial or complete paralysis of a body part, slurred speech, weakness or drooping of the face, or a sudden inability to walk or hold your balance Allergies/Adverse Reactions: Allergies No Known Allergies Allergy (Verified 05/03/18 03:33) Medications to take at Discharge Tablet 1 tab PO DAILY 05/03/18 Please Follow Up With: Hima Davis MD - [phone] When: Call to make an appointment with your doctor in 6 weeks. Primary Care Physician: Care Physician,No Primary [Primary Care Provider] - Test Results: Test results from this visit will be discussed in further detail at your follow-up appointment, if applicable.
--- NOTE | 2018-05-03 11:43 | DCINST_ITS ---
Discharge Diet: No Restrictions Discharge Activity: May Shower, May Take a Tub Bath May resume sexual activity in: 4-6 weeks Additional Activity Instructions:: Nothing in the vagina for 4-6 weeks. You may return to work/school in 6 weeks. Call your doctor if you observe: Fever of 101 or Higher, Inability to urinate, Inability to have a bowel movement, Using more than one pad per hour Additional Instructions: If you experience any of the following, contact your healthcare provider. * Bleeding that soaks a pad every hour for 2 hours * Fever 100.4 or higher * Unrelieved incision or abdominal pain * Swelling, redness, discharge or bleeding from your incision or episiotomy site * Your incision begins to separate * Problems urinating (including inability to urinate or burning while urinating). * Visual changes * Severe headache * Flu-like symptoms * Pain or redness in one of both of your breasts * Pain, warmth, tenderness or swelling in your legs, especially the calf area * Frequent nausea and vomiting * Symptoms of depression or anxiety If you experience any of the following, call 911 or go to the nearest Emergency Room. * Chest pain * Problems breathing * Seizure activity * Partial or complete paralysis of a body part, slurred speech, weakness or drooping of the face, or a sudden inability to walk or hold your balance Allergies/Adverse Reactions: Allergies No Known Allergies Allergy (Verified 05/03/18 03:33) Medications to take at Discharge Tablet 1 tab PO DAILY 05/03/18 Please Follow Up With: Hima Davis MD - [phone] When: Call to make an appointment with your doctor in 6 weeks. Primary Care Physician: Care Physician,No Primary [Primary Care Provider] - Test Results: Test results from this visit will be discussed in further detail at your follow- up appointment, if applicable.
[2018-05-03] MEDS: Oxytocin 30 units/NS 500 ml 30 UNITS/500 ML IV.SOLN 167 UNITS IV (12:00)
[2018-05-03 15:47] VITALS: BP 106/65; PULSE 70; RESP 16; TEMP 37.3
[2018-05-03 20:00] VITALS: BP 115/74; PULSE 75; RESP 15; TEMP 36.9; O2SAT 96
[2018-05-03 23:45] VITALS: BP 119/72; PULSE 74; RESP 16; TEMP 36.7; O2SAT 97
[2018-05-04 04:05] VITALS: BP 121/77; PULSE 81; RESP 18; TEMP 36.7; O2SAT 96
[2018-05-04 08:25] VITALS: BP 103/63; PULSE 81; RESP 16; TEMP 36.6
--- NOTE | 2018-05-04 09:15 | PCM.PN.OB ---
Subjective: Patient without complaints. Breast-feeding going well. Minimal vaginal bleeding. Doing well. - Physical Exam Vital Signs Temp Pulse Resp BP Pulse Ox 97.9 F 81 16 103/63 96 05/04/18 08:25 05/04/18 08:25 05/04/18 08:25 05/04/18 08:25 05/04/18 04:05 Oxygen Delivery Method Room Air Weight: 133 lb Body Mass Index (BMI) 23.6 Intake and Output for Last 24 Hours 05/02/18 05/03/18 05/04/18 23:59 23:59 23:59 Intake Total 1766 / 1766 Output Total 1000 / 1000 Balance 766 / 766 Medical Necessity - Tobacco Use Smoking Status: Never smoker Assessment/Plan All Active Problems Abnormal uterine bleeding (AUB) (Resolved) Status post hysteroscopy (Resolved) Cervical polyp (Resolved) Doing well day #1. Continuing present care.
[2018-05-04 13:43] VITALS: BP 121/72; PULSE 86; RESP 16; TEMP 36.6
[2018-05-04 20:30] VITALS: BP 111/64; PULSE 90; RESP 16; TEMP 36.7; O2SAT 98
[2018-05-05 02:20] VITALS: BP 109/61; PULSE 94; RESP 16; TEMP 36.7; O2SAT 98
--- NOTE | 2018-05-05 09:18 | PCM.PN.OB ---
Subjective: Patient without complaints. Breast-feeding going well. Ready to go home today. - Physical Exam Vital Signs Temp Pulse Resp BP Pulse Ox 98.1 F 94 16 109/61 98 05/05/18 02:20 05/05/18 02:20 05/05/18 02:20 05/05/18 02:20 05/05/18 02:20 Oxygen Delivery Method Room Air Weight: 133 lb Body Mass Index (BMI) 23.6 Intake and Output for Last 24 Hours 05/03/18 05/04/18 05/05/18 23:59 23:59 23:59 Intake Total 1766 / 1766 Output Total 1000 / 1000 Balance 766 / 766 Medical Necessity - Tobacco Use Smoking Status: Never smoker Assessment/Plan All Active Problems (Last Updated 05/04/18 @ 09:18 by Hima Davis MD) Abnormal uterine bleeding (AUB) (Resolved) Status post hysteroscopy (Resolved) Cervical polyp (Resolved) Doing well day #2. Will release to home with routine instructions.
[2018-05-05 09:20] VITALS: BP 114/69; PULSE 89; RESP 16; TEMP 36.8; O2SAT 100
--- OUTSIDE RECORDS SUMMARY | 2018-07-05 00:07 | XMS RPT_ITS ---
[...] 05/03/2018 Status: F Source: [place] 11:43 AM [facility] REPOSITORY [facility] Medical Records Department [address] [place] [address] Instructions for Home/Discharge Instructions 05/03/18 1142 MR#: [id number] Acct: [id number] Name: DOTTIE NETTLES Rep #: [id number] : 1995 23 From: Darcie Durán MD [...] Follow Up With: Darcie Durán MD - [phone] When: Call to make an appointment with [...] OPERATIVE REPORT Observed: 05/03/2018 Status: F Source: [place] 11:42 AM [facility] Medical Records Department [address] [place] [address] Operative Report 05/03/18 1139 MR#: [id number] Acct: [id number] Name: DOTTIE NETTLES Rep #: [id number] : 1995 23 From: Darcie Durán MD PCP: Care Physician, No Primary Status: ADM IN Location: [place] [address] Vaginal Delivery Maternal Presentation: Active Labor Amniotic Membrane Rupture Type: Artificial Amniotic Fluid Description: Clear Final BLANCA: 04/27/18 Final BLANCA Source: US <20 weeks Gestational age: 41 [...] F Source: [place] NO DIFF 3:15 AM [facility] REPOSITORY TYPE CODE TESTS RESULT OUT OF [...] MPV 10.1 Performed By: #### L100.0500 #### [facility] [address] [place], [place], [address] TYPE AND SCREEN Collected: 05/03/2018 Status: F Source: [place] 3:15 AM [facility] REPOSITORY Order Comment: Reason for Type AND Screen/Red Cells: TYPE CODE TESTS RESULT OUT OF RANGE REFERENCE UNITS LAB B10.0800 O Normal BLOOD TYPE GEL POSITIVE LAB B100.4000 Normal Antibody NEGATIVE Screen Performed By: #### B101.7450 #### [facility] [address] [place], [address] Observed: 03/29/2018 Status: F Source: E[place]EN CULTURE, GROUP B 10:00 AM [facility] STREPTOCOCCUS REPOSITORY Comments: VAGINAL/RECTAL WYATT Culture Group B Beta Streptococcus is not isolated. Performed By: #### M100.1800 #### [facility] [address] [place], [address] CBC Collected: 02/07/2018 Status: F Source: [place] MAG[place] 9:45 AM [facility] REPOSITORY TYPE CODE TESTS RESULT OUT [...] x10EE3/U L Neut # High 7.50 LAB Bethel #(LOINC) 0.20 - 1.00 x10EE3/U L Bethel # 0.50 LAB EO #(LOINC) 0.00 - 0.50 x10EE3/U L EO # 0.00 LAB Baso #(LOINC) 0.00 - 0.10 x10EE3/U L Baso # 0.10 LAB MANUAL DIFF(LOINC) MANUAL DIFF N/A LAB MORPHOLOGY([facility] ) MORPHOLOGY N/A Result Comment: {CD] Performed By: #### [id number] #### [facility],[address] [place] [address] GLUCOSE CHALLENGE 50GM Collected: 02/07/2018 Status: F Source: [facility] 1 HOUR 9:45 AM [facility] REPOSITORY TYPE CODE TESTS RESULT OUT OF REFERENCE UNITS RANGE LAB GLUCOSE CHALLENGE 50GM 1 HOUR(INC) GLUCOSE CHALLENGE 50GM 1 HOUR Result Comment: GLUCOSE CHALLENGE 50 GMS 1 HOUR LAB GLUCOSE 1HR([facility]) 70 - 140 mg/dl GLUCOSE 1HR 98 Performed By: #### [id number] #### [facility],[address] [place] [address] URINALYSIS Collected: 10/18/2017 Status: F Source: [facility] 9:15 AM [facility] REPOSITORY TYPE CODE TESTS RESULT OUT [...] Urobilinog(LOINC) NORMAL: NORMAL Urobilinog NORM LAB Sp Jefferson(LOINC) NORMAL: 1.010-1.030 Sp Jefferson 1.015 LAB Nitrite(LOINC) NORMAL: NEGATIVE Nitrite NEG LAB Leukocytes(LOINC) NORMAL: NEGATIVE Leukocytes NEG LAB Microscopic(LOINC ) Microscopic NOT INDICATED Performed By: #### [id number] #### [facility],[address] [place] [address] CBC Collected: 10/18/2017 Status: F Source: [place] 9:15 AM [facility] REPOSITORY TYPE CODE TESTS RESULT OUT [...] 7.10 x10EE3/U L Neut # 6.30 LAB Bethel #(LOINC) 0.20 - 1.00 x10EE3/U L Bethel # 0.40 LAB EO #(LOINC) 0.00 - 0.50 x10EE3/U L EO # 0.00 LAB Baso #(LOINC) 0.00 - 0.10 x10EE3/U L Baso # 0.00 LAB MANUAL DIFF(LOINC) MANUAL DIFF N/A LAB MORPHOLOGY(LOINC ) MORPHOLOGY N/A Result Comment: {CD] Performed By: #### [id number] #### [facility],[address] [place] [address] BB TYPE & SCREEN Collected: 10/18/2017 Status: F Source: [facility] 9:15 [facility] REPOSITORY TYPE CODE TESTS RESULT OUT OF REFERENCE UNITS RANGE LAB BB TYPE & SCREEN(LOIN C) BB TYPE & SCREEN Result Comment: TYPE, Rh, AND SCREEN LAB ABO(LOINC) ABO O LAB Rh(LOINC) Rh POS LAB ANTIBODY SCR(LOINC) ANTIBODY negative SCR Performed By: #### [id number] #### [place] [address] TSH Collected: 10/18/2017 Status: F Source: [facility] 9:15 [facility] REPOSITORY TYPE CODE TESTS RESULT OUT OF RANGE REFERENCE UNITS LAB TSH(LOINC) 0.34 - 5.60 uIU/ml TSH 0.88 Performed By: #### [id number] #### [facility],[address] [place] [address] RUBELLA Collected: 10/18/2017 Status: F Source: [facility] 9:15 [facility] REPOSITORY TYPE CODE TESTS RESULT OUT OF [...] Rubella virus. Test Performed by [facility], [facility], [address] [place] [address] Hung Vidal M.D., Ph.D., Director of Novitaz , [facility] [id number] Performed By: #### [id number] #### [facility],[address] [place] [address] RPR [QUEST] Collected: 10/18/2017 Status: F Source: [place] 9:15 AM [facility] REPOSITORY TYPE CODE TESTS RESULT OUT OF RANGE REFERENCE UNITS LAB RPR [QUEST](LILIA NC) RPR [QUEST] Result Comment: _RPR (MONITOR) with REFLEX_ RPR (MONITOR) WITH REFLEX TO TITER Reported: 10/20/2017 16:32 Status=F TEST RESULT FLAG RANGE UNITS RPR SCREEN Nonreactive Nonreactive 10/20/17.1643.rfl.COMPLETE.AMRR .48044-0 RPR TITER Not indicated. 10/20/17.1643.rfl.COMPLETE.AMRR Test Performed by [facility], [facility], [address] [place] [address] Hung Vidal M.D., Ph.D., Director of Laboratories , [facility] [id number] Performed By: #### [id number] #### [facility],[address] [place] [address] HEP C VIRUS AB WITH Collected: 10/18/2017 Status: F Source: [facility] REFLEX [QUEST] 9:15 AM [facility] REPOSITORY TYPE CODE TESTS RESULT OUT OF REFERENCE UNITS RANGE LAB HEP C VIRUS AB WITH REFLEX [QUEST](LOINC HEP C ) VIRUS AB WITH REFLEX [QUEST] Result Comment: _HEP C VIRUS AB_ HEPATITIS C AB W/REFL HCV RNA, QN REAL-TIME PCR Reported: 10/21/2017 04:05 Status=F TEST RESULT FLAG RANGE UNITS HEPATITIS C ANTIBODY Nonreactive Nonreactive 10/21/17.7.rfl.COMPLETE.AMRR .95999-1 SIGNAL TO CUTOFF 0.01 <1.00 ratio 10/21/17.0417.rfl.COMPLETE.AMRR .95046-8 ADDITIONAL TESTING Not indicated 10/21/17.rfl.COMPLETE.AMRR Test Performed by [facility] [address] [place], [place] Hung Vidal M.D., Ph.D., Director of Laboratories , CLIA [id number] Performed By: #### [id number] #### [facility],[address] [place] [address] HEP B SURFACE AG Collected: 10/18/2017 Status: F [facility] REPOSITORY TYPE CODE TESTS RESULT OUT [...] the current package insert. Test Performed by [facility], [place], [address] [place], [place] Hung Vidal M.D., Ph.D., Director of Laboratories , CLIA [id number] Performed By: #### [id number] #### [facility],[address] [facility] [address] EMERGENCY REPORT Observed: 09/25/2017 Status: F [facility]: [facility]06 PM [facility] REPORT NAME ACCOUNT SEX AGE ADMIT DISCHARGE PT MED. RECORD# NUMBER DATE DATE TYPE DOTTIE NETTLES [id number] F 09/15/17 09/16/17 3 E [id number] ROOM: ER DATE OF : 1995 DICTATING [...] Fuad Camarillo DO 09/20/17 05:51 JOB #: [id number] Transcribed By: sravan 09/20/17 16:15 Electronically signed by: E-SIGN FUAD CAMARILLO DO 09/25/17 22:06 Page 2 of 2 DOTTIE NETTLES Emergency Room Report CT/NG [facility] BY PCR Collected: 09/20/2017 Status: F Source: [place] 2:45 PM [facility] REPOSITORY Order Comment: CYTOLOGY INFORMATION: - CLINICAL INFORMATION: - DATE LMP/MENOPAUSE: 07-21-17 LMP - COLLECTION VIAL: Thin Prep Vial - SYRUPER SOURCE: CERVICAL/ENDOCERVICAL - COLLECTION TECHNIQUE: BRUSH/SPATULA TYPE CODE TESTS RESULT OUT OF RANGE REFERENCE UNITS LAB L8200.2100 Negative Normal Chlam Negative Trac PCR LAB L8200.2200 Negative Normal NG by Negative PCR Performed By: #### L8200.2000 #### [facility] [place], [address] PAP TEST I-G Collected: 09/20/2017 Status: F Source: [place] 2:45 PM [facility] REPOSITORY Order Comment: CYTOLOGY INFORMATION: - CLINICAL INFORMATION: - DATE LMP/MENOPAUSE: 07-21-17 LMP - COLLECTION VIAL: Thin Prep Vial - SYRUPER SOURCE: CERVICAL/ENDOCERVICAL - COLLECTION TECHNIQUE: BRUSH/SPATULA Specimen Comment: [id number] Specimen Comment: No. of containers..01 ThinPrep Vial TYPE CODE TESTS RESULT OUT OF RANGE REFERENCE UNITS LAB L7400.0800 . Normal DIAGN Comment Result Comment: NEGATIVE FOR INTRAEPITHELIAL LESION AND MALIGNANCY. LAB L7400.0900 . Normal ADEQ Comment Result Comment: Satisfactory for evaluation. Endocervical and/or squamous metaplastic cells (endocervical component) are present. LAB L7400.1400 . Normal PERFORM Comment Result Comment: Kimmy Stanley, Glost Kiln Operator (ASCP) LAB L7400.2575 . Normal TEST METHOD Comment Result Comment: This liquid based ThinPrep(R) pap test was screened with the use of an image guided system. Performed at: [address] [id number] Warehouse Guard: Faye Hawk MD, Phone: [phone] LAB L7400.6631 . Normal . COMM LAB L7400.2700 . [...] Status: F Source: [place] MAG[place]AL[place] 11:06 PM [facility] REPOSITORY TYPE CODE TESTS RESULT OUT OF REFERENCE UNITS RANGE LAB BB TYPE & SCREEN(LOIN C) BB TYPE & SCREEN Result Comment: TYPE, Rh, AND SCREEN LAB ABO(LOINC) ABO O LAB Rh(LOINC) Rh POS LAB ANTIBODY SCR(LOINC) ANTIBODY negative SCR Performed By: #### [id number] #### [place] [address] URINALYSIS Collected: 09/15/2017 Status: F Source: [place] 11:05 PM [facility] REPOSITORY TYPE CODE TESTS RESULT OUT [...] ) NORMAL Urobilinog NORM LAB Sp NORMAL: Jefferson(LOINC) 1.010-1.030 Sp Jefferson 1.010 LAB Nitrite(LOINC) NORMAL: NEGATIVE Nitrite NEG LAB Leukocytes(LOINC NORMAL: ) NEGATIVE Leukocytes NEG LAB Microscopic(LOIN C) Microscopic NOT INDICATED Performed By: #### [id number] #### [facility],[address] [place] [address] US OB INITIAL< 14 Observed: 09/15/2017 Status: F Source: ANTON PAREDES; 1ST GESTATION 10:00 PM [place] [address] Patient: THO DOTTIE Daylin Phone#: : 1995 Age: 22 Gender: F Pt. Type: ER Account: [id number] Location: 052 Ordering: DR. FUAD CAMARILLO Exam Date: 09/15/2017/21:32 Family Phys: JOSEPH REYES Charge Code: 588593 Physician: Yell Order #: [id number] DLP Dose#: PROCEDURE: OB INITIAL <14 WEEKS [...] Observed: 09/15/2017 Status: F Source: [facility] 10:00 PM [place] [address] Patient: DOTTIE NETTLES Phone#: : 1995 Age: 22 Gender: F Pt. Type: ER Account: [id number] Location: 052 Ordering: DR. FUAD CAMARILLO Exam Date: 09/15/2017/21:32 Family Phys: JOSEPH REYES Charge Code: 695624 Physician: Yell Order #: [id number] DLP Dose#: PROCEDURE: OB INITIAL <14 WEEKS [...] Status: F Source: [place] 8:13 PM [facility] REPOSITORY TYPE CODE TESTS RESULT OUT [...] Urobilinog(LOINC) NORMAL: NORMAL Urobilinog NORM LAB Sp [place](LOINC) NORMAL: 1.010-1.030 Sp Jefferson 1.020 LAB Nitrite(LOINC) NORMAL: NEGATIVE Nitrite NEG [...] LAB Yeast(LOINC) Yeast NONE Performed By: #### [id number] #### [facility],[address] [place] [address] Observed: 09/15/2017 Status: F Source: [facility] CULTURE URINE 8:13 PM [facility] REPOSITORY CULTURE URINE _URINE CULTURE_ M I C R O B I O L O G Y R E P O R T FINAL Antimicrobial Susceptibility and Organism Identification Report Specimen Number : [id number] Requested : 09/15/17 Specimen Source : URINE Collected : 09/15/17 20:13 Gallardo of Isolation : Emergency Room Received : 09/15/17 20:13 Requesting Physician : STANISLAV Vanessa Patient/Specimen Tests and Comments Specimen Comments NO GROWTH AT 18 - 24 HOURS FINAL REPORT: NO GROWTH AT 48 HOURS Tech : Source : URINE ID # : [id number] FINAL Report Date : / / : Collected : 09/15/17 20:13 09/17/17.MDS. 09/17/17.MDS.COMPLETE Performed By: #### [id number] #### [facility],[address] [place] [address] CBC Collected: 09/15/2017 Status: F Source: [facility] 6:53 PM [facility] REPOSITORY TYPE CODE TESTS RESULT OUT [...] 7.10 x10EE3/U L Neut # 5.20 LAB Bethel #(LOINC) 0.20 - 1.00 x10EE3/U L Bethel # 0.60 LAB EO #(LOINC) 0.00 - 0.50 x10EE3/U L EO # 0.00 LAB Baso #(LOINC) 0.00 - 0.10 x10EE3/U L Baso # 0.00 LAB MANUAL DIFF(LOINC) MANUAL DIFF N/A LAB MORPHOLOGY(INC ) MORPHOLOGY N/A Result Comment: {CD] Performed By: #### [id number] #### [facility],[address] [place] [address] CMP WITH EGFR Collected: 09/15/2017 Status: F Source: [facility] 6:53 PM [facility] REPOSITORY TYPE CODE TESTS RESULT OUT [...] OF AGE AND OLDER. Performed By: #### [id number] #### [facility],[address] [place] [address] PREG SERUM QUANT Collected: 09/15/2017 Status: F Source: [facility] 6:53 PM [facility] REPOSITORY TYPE CODE TESTS RESULT OUT OF REFERENCE UNITS RANGE LAB HCG mIU/mL QUANTITATI VE(LOINC) HCG QUANTITATIVE 47639 Result Comment: Reference Range: Male: <5 Female: [...] 3000-50,000 3RD TRIMESTER 1000-50,000 Performed By: #### [id number] #### [facility],[address] [facility] [address] OPERATIVE REPORT Observed: 05/19/2017 Status: F Source: [place] 8:13 AM [facility] REPOSITORY [facility] Medical Records Department [address] [place] [address] Operative Report 05/19/17 0807 MR#: [id number] Acct: [id number] Name: DOTTIE NETTLES Rep #: [id number] : 1995 22 From: Jennifer Vidal MD PCP: Care Physician, No Primary Status: REG [facility] Y Location: [place] [address] Problem List (1) Abnormal uterine bleeding (AUB) [...] DISCHARGE INSTRUCTION Observed: 05/19/2017 Status: F Source: [place] 8:07 AM [facility] REPOSITORY [facility] Medical Records Department [address] [place] [address] Instructions for Home/Discharge Instructions 05/19/17 08 MR#: [id number] Acct: [id number] Name: DOTTIE NETTLES Rep #: [id number] : 1995 22 From: Jennifer Vidal MD PCP: Care Physician, No Primary Status: REG [facility] Discharge Diet: No Restrictions Discharge Activity: Return [...] 05/19/2017 Status: F Source: [place] 7:15 AM [facility] REPOSITORY Patient: DOTTIE NETTLES : 1995 (/) Acct Num: [id number] Phys: Jennifer Alvarez MD Unit Num: [id number] Loc: [facility] Specimen: [id number] Received: 05/19/17822 Spec Type: ENDOM [...] bisected polyp. / Sinan 05/19/17 TC:5 CPT: 55887 x2 HEADER OPERATION: Hysteroscopy, dilation and curettage, polypectomy PRE-OP DIAGNOSIS: Polyp of cervix uteri TISSUE SUBMITTED: A. Endometrial curettings, B. Endometrial polyp MICROSCOPIC DESCRIPTION Slides are reviewed. MICROSCOPIC DIAGNOSIS A. Endometrial curettings: Secretory endometrium. B. Endometrial polyp, polypectomy: Fragments of inflamed benign endometrial polyp with secretory endometrium. SJ:deandre 05/20/17 Signed Kp Mcarthur 05/20/17 <signature on file> Performed By: #### PEMB #### [facility] [address] [place], [address] TYPE AND SCREEN Collected: 05/19/2017 Status: F Source: [place] 5:50 AM [facility] REPOSITORY Order Comment: Reason for Type AND Screen/Red Cells: SURGERY TYPE CODE TESTS RESULT OUT OF RANGE REFERENCE UNITS LAB B10.0800 O Normal BLOOD TYPE GEL POSITIVE LAB B100.4000 Normal Antibody NEGATIVE Screen Performed By: #### B101.7450 #### [facility] [address] [place], [address] ,URINE Collected: 05/19/2017 Status: F Source: [place] 5:40 AM [facility] REPOSITORY TYPE CODE TESTS RESULT OUT OF REFERENCE UNITS RANGE LAB L400.8000 Negative Normal HCGUQUAL Negative Result Comment: Very dilute urine specimens, as indicated by a low specific gravity, may not contain representative phlebotomy services levels of hCG. If is still suspected, a first morning urine specimen should be collected 48 hours later and tested. Performed By: #### L400.7600 #### [facility] [address] [place], [address] ALLERGIES ALLERGIES DATE TYPE / CODE NAME / CODE REACTION SEVERITY SOURCE 05/03/2018 Drug No Known Unknown [place] Allergy/961883271(S Allergies/F[address] [facility] [place]) [address](RXNORM) Hospital Repository Miscellaneous No Known Drug Moderate Anton Pomerene Allergy/338470080(S Allergies (Severity [facility] NOMED CT) Modifier) [facility] (Qualifier Repository Value) ENCOUNTERS ENCOUNTERS ADMIT/DISCHARGE ACCOUNT ADMITTING ENCOUNTER LOCATION SOURCE NUMBER CLASS 05/03/2018/ [id number] Darcie Durán Inpatient [facility] 9 1 Encounter [facility] ing:WPRoom: Repository [id number]: 1 03/28/2018 [id number] Ambulatory Ellen Ellen 7 [facility] ing:LABSPEC Repository 02/07/2018/ [id number] DARCIE DURÁN [facility] 8 [facility] Repository 10/18/2017/ [id number] DARCIE DURÁN [facility] 8 [facility] Repository 09/20/2017 [id number] Ambulatory Ellen Orgas 6 [facility] ing:LABSPEC Repository 09/15/2017/ [id number] [facility] Emergency [facility] [place] [address] 8 FUAD DO oom: ERBed: [facility] Repository 05/19/2017/ [id number] [facility] ing:SDCRoom: Repository AC08 PAYERS PAYERS ENCOUNTER GUARANTOR PAYER SUBSCRIBER SOURCE 05/03/2018 DOTTIE Mills Primary Insurance:[facility] DOTTIE [id number] CR PACKAGE PLANPolicy MILLERDOB: [facility] [address], Number: .Effective [id number] [address]Gzy: . Date:2017-10-07 Repository (HP) 05/03/2018 Secondary NOT GIVENUNK [place] Insurance:SELF PAY [facility] Number: Effective Repository Date:2017-10-07 03/28/2018 DOTTIE Mills Primary NOT GIVENUNK Ellen [id number] CR Insurance:SELF PAY [address] [address]Gdz: NO Number: Effective Repository PHONE (HP) Date:2018-03-28 09/20/2017 DOTTIE Mills Primary DOTTIE Mills Ellen [id number] CR Insurance:TAOIST MILLERDOB: [address] Number: [id number] [address]Myw: NO Effective Repository PHONE (HP) Date:2017-09-20 09/20/2017 Secondary NOT GIVENUNK [place] Insurance:SELF PAY [facility] Number: Effective Repository Date:2017-09-20 05/19/2017 DOTTIE Mills Primary Insurance:[facility] DOTTIE Hughes [id number] [facility] MILLERDOB: [address], Number: .Effective [id number] [address]Xoh: Date:2017-04-25 Repository () 05/19/2017 Secondary NOT GIVENUNK Ellen Insurance:SELF PAY [facility] Number: Effective Repository Date:2017-04-25
== END 2018-05-05 12:55 | disposition home or self-care (01) | DRG 768 ==
PROVIDERS: Obstetrics & Gynecology; Admitting Provider Obstetrics & Gynecology; Referring Provider Obstetrics & Gynecology; Visit Provider Obstetrics & Gynecology
DX: O70.20 Third degree perineal laceration during delivery, unspecified (principal); Z37.0 Single live birth; Z3A.40 40 weeks gestation of pregnancy; Z78.9 Other specified health status
CPT/HCPCS: 59025; 59050; 85027; 86850; 86900; 99218; J7120; G0378